=== PATIENT | female | born 1965 | race Caucasian/White ===

== ENCOUNTER → 2018-08-08 | Outpatient (CLI) | payer OTHER ==
--- NOTE | 2018-08-12 21:58 | RAD ---
MR#: [id number] Date of Study: 08/08/2018 Ordering Physician: SHAY LEROY, Referring Physician: SHAY LEROY, Tech: ERICKSON Petersen, RDMS, RTR APPROVED REPORT Patient Location : OUT-PATIENT Indications Lower Extremity Pain : Findings The right great saphenous vein measures 5.5 mm and does not show any evidence of reflux. The left gre at saphenous vein measures 7 mm and does not show any evidence of reflux. The bilateral lesser saphenous veins do not show any evidence of reflux. There are large varicosities seen in the left medial knee area but no obvious evidence of reflux is n oted in these varicosities. Critical Notification Critical Value: No <Conclusion> 1. Negative for reflux in the bilateral greater and lesser saphenous veins. Signed by : Hesham Stevenson, Electronically Approved : 08/12/2018 21:58:01
--- NOTE | 2018-08-12 22:11 | RAD ---
MR#: [id number] Date of Study: 08/08/2018 Ordering Physician: SHAY LEROY, Referring Physician: SHAY LEROY, Tech: ERICKSON Petersen, RDMS, RTR APPROVED REPORT Bilateral Lower Extremity Venous Study for DVT Patient Location: OUT-PATIENT Indications Lower Extremity Pain: Findings The bilateral lower extremity deep veins were evaluated for thrombus with color Doppler, spectral and grayscale images. On the right the grayscale images of the common femoral, superficial femoral and popliteal veins do n ot demonstrate any evidence of thrombus and these veins appear to be compressible. The below-knee vei ns were not well visualized but grossly appear to be compressible. Spectral imaging and color Doppler do not reveal any evidence of obstruction to flow with normal respirophasic variation above the knee . Below the knee there is spontaneous flow noted. On the left, the grayscale images of the common femoral, superficial femoral and popliteal veins do n ot demonstrate any evidence of thrombus and these veins appear to be compressible. The below-knee vei ns again were not well visualized but grossly appear to be compressible. Spectral imaging and color D oppler do not reveal any evidence of obstruction to flow with normal respirophasic variation above th e knee. The below-knee veins demonstrate spontaneous flow. Critical Notification Critical Value: No <Conclusion> 1. Negative for DVT in the bilateral lower extremities. Signed by : Hesham Stevenson, Electronically Approved : 08/12/2018 22:10:43
== END | disposition home or self-care (01) ==
LOC: US 08:36
PROVIDERS: ATTEND Internal Medicine Cardiovascular Disease
DX: I83.92 Asymptomatic varicose veins of left lower extremity (principal)
CPT/HCPCS: 93970

== ENCOUNTER → 2020-08-31 | Outpatient (CLI) | payer BC ==
--- NOTE | 2020-08-31 14:37 | CARD ---
MR#: [id number] Date of Study: 08/31/2020 Ordering Physician: SHAY US, Referring Physician: Dhruv MELENDEZ: Will Chamberlain [facility] APPROVED REPORT EXAM: Two-dimensional and M-mode echocardiogram with Doppler and color Doppler. Other Information Quality : AverageHR: 57bpm Rhythm : NSR INDICATION Palpitations 2D DIMENSIONS Left Atrium(2D)3.3 (1.6-4.0cm)IVSd0.8 (0.7-1.1cm) Aortic Root(2D)2.7 (2.0-3.7cm)LVDd4.8 (3.9-5.9cm) LVOT Diameter2.0 (1.8-2.4cm)PWd0.7 (0.7-1.1cm) LA Vaxnjb65 (18-58mL)LVDs3.5 (2.5-4.0cm) FS (%) 27.4 %SV56.0 ml LVEF(%)53.1 (>50%) Mitral Valve MV E Dwpugmwa54.4cm/sMV E Peak Gr.4mmHg MV DECEL [id number] A Vxggzjpf776.6cm/s MV E Mean Gr.2mmHgE/A Ratio0.8 TDI Lateral S' P. V9.0cm/sMedial S' P. V9.0cm/s Pulmonary Valve PV Peak Jggganpv54.1cm/s Tricuspid Valve TR P. Nltcewst969gu/sTR Peak Gr.17mmHg Pulmonary Vein S1 Xlbqcbfg05.4cm/sD2 Zdrllsta00.7cm/s LEFT VENTRICLE The left ventricle is normal size. There is normal left ventricular wall thickness. The left ventricu lar systolic function is normal. The ejection fraction is 60-65% There is normal LV segmental wall mo tion. Transmitral Doppler flow pattern is Grade I-abnormal relaxation pattern. No left ventricle thro mbus noted on this study. There is no ventricular septal defect visualized. There is no left ventricu lar aneurysm. RIGHT VENTRICLE The right ventricle is normal size. There is normal right ventricular wall thickness. The right ventr icular systolic function is normal. ATRIA The left atrium size is normal. The right atrium size is normal. Mildly aneurysmal atrial septum AORTIC VALVE The aortic valve is normal in structure and function. Doppler and Color Flow revealed no significant aortic regurgitation. There is no significant aortic valvular stenosis. There is no aortic valvular v egetation. MITRAL VALVE The mitral valve is normal in structure and function. There is no evidence of mitral valve prolapse. There is no mitral valve stenosis. Doppler and Color-flow revealed trace mitral regurgitation. TRICUSPID VALVE The tricuspid valve is normal in structure and function. Doppler and Color Flow revealed no tricuspid valve regurgitation noted. There is no tricuspid valve prolapse or vegetation. There is no tricuspid valve stenosis. PULMONIC VALVE Not well visualized Doppler and Color Flow revealed no pulmonic valvular regurgitation. There is no p ulmonic valvular stenosis. GREAT VESSELS The aortic root is normal in size. The ascending aorta is normal in size. The pulmonary artery is nor mal. PERICARDIAL EFFUSION There is no pleural effusion. There is no evidence of significant pericardial effusion. Critical Notification Critical Value: No <Conclusion> The left ventricular systolic function is normal. The ejection fraction is 60-65% There is normal LV segmental wall motion. Transmitral Doppler flow pattern is Grade I-abnormal relaxation pattern. Trace mitral regurgitation. There is no evidence of significant pericardial effusion. Signed by : Shay Us, Electronically Approved : 08/31/2020 14:36:37
== END ==
LOC: ECHO 08:43
PROVIDERS: ATTEND Internal Medicine Cardiovascular Disease
DX: R00.2 Palpitations (principal)
CPT/HCPCS: 93306

== ENCOUNTER 2020-09-01 10:34 | Emergency (ER) | payer BC ==
[~2020-09-01] VITALS: Ht 170.2 cm; Wt 79.5 kg
[2020-09-01] MEDS ORDERED: HYDROcodone/APAP 5/325MG 1 TAB TABLET PO ONE (11:15)
[2020-09-01] MEDS ORDERED: NEOMY/BACITR/POLYMYXIN OINT PACKET. TP ONE (11:15)
[2020-09-01 11:16] VITALS: BP 157/67
--- NOTE | 2020-09-01 11:18 | PHYS DOC ---
General Adult EDM: Chief Complaint: MECHANICAL FALL HPI: HPI: Patient is a 55 year old female who presents with was taking her puppy out side and went down a couple of cement stairs when she tripped falling into her landscaping that was ramos and gravel. Patient states this happened around 5:00 in the morning. She states she cannot relax and she had a tetanus shot. She has a left dorsal hand bruising, left jaw superficial scrapes, left toe bruising. A right forearm normal large superficial abrasion. Her right dorsal tib-fib is bruised. She also states that she just has pain in the right arm in general. She states she also hit the back of her head that did not pass out. She denies any neck or back pain. She denies LOC. She states she takes an arthritis pill that is prescribed to her that she thinks might have a blood thinner in it. She has arthritis and denies any other past medical history. Right now she rates her pain at a 6 out of 10. (YENNIFER EASON APRN) Review of Systems: Review of Systems: Constitutional: Denies fever or chills. [] Eyes: Denies change in visual acuity. [] HENT: Denies nasal congestion or sore throat. [] Respiratory: Denies cough or shortness of breath. [] Cardiovascular: Denies chest pain or edema. [] GI: Denies abdominal pain, nausea, vomiting, bloody stools or diarrhea. [] : Denies dysuria. [] Musculoskeletal: Denies back pain or +left hand joint pain. + Right arm ,+ left toe, + right lower leg +, left great toe [] Integument: Denies rash. + Great toe bruising , + right forearm large superficial abrasions, + left hand bruising, + left lower jaw superficial abrasion [] Neurologic: Denies headache, focal weakness or sensory changes. [] Endocrine: Denies polyuria or polydipsia. [] Lymphatic: Denies swollen glands. [] Psychiatric: Denies depression or anxiety. [] (YENNIFER EASON APRN) Heart Score: C/O Chest Pain: No Risk Factors: Risk Factors: DM, Current or recent (<one month) smoker, HTN, HLP, family history of CAD, obesity. Risk Scores: Score 0 - 3: 2.5% MACE over next 6 weeks - Discharge Home Score 4 - 6: 20.3% MACE over next 6 weeks - Admit for Clinical Observation Score 7 - 10: 72.7% MACE over next 6 weeks - Early Invasive Strategies (YENNIFER EASON APRN) Physical Exam: PE: Constitutional: Well developed, well nourished, no acute distress, non-toxic appearance. [] HENT: Normocephalic, atraumatic, bilateral external ears normal, oropharynx moist, no oral exudates, nose normal. [] Eyes: PERRLA, EOMI, conjunctiva normal, no discharge. [] Neck: Normal range of motion, no tenderness, supple, no stridor. [] Cardiovascular:Heart rate regular rhythm, no murmur [] Lungs & Thorax: Bilateral breath sounds clear to auscultation [] Abdomen: Bowel sounds normal, soft, no tenderness, no masses, no pulsatile masses. [] Skin: Warm, dry, no erythema, no rash. + Right forearm abrasion, left dorsal hand bruising, left toe bruising, left jaw superficial abrasion, right lower riley bruising. [] Back: No tenderness, no CVA tenderness. [] Extremities: Right arm forearm, left great toe, left dorsal hand tenderness, no cyanosis, no clubbing, left great toe ROM not intact, no edema. [] Neurologic: Alert and oriented X 3, normal motor function, normal sensory function, no focal deficits noted. [] Psychologic: Affect normal, judgement normal, mood normal. [] (YENNIFER EASON APRN) EKG: EKG: [] (YENNIFER EASON APRN) Radiology/Procedures: Radiology/Procedures: [] Impression: [facility] [address] [place] [address] IMAGING REPORT Signed PATIENT: AJ MATAMOROS ACCOUNT: [id number] : 1965 LOCATION: ER AGE: 55 SEX: F EXAM STATUS: REG ER ORD. PHYSICIAN: YENNIFER EASON APRN REASON: BRUISING AFTER FALL PROCEDURE: TIBIA FIBULA RIGHT EXAM: Left foot, 3 views; left tibia and fibula, 2 views. HISTORY: Fall COMPARISON: None. FINDINGS: Left foot: 3 views of the foot are obtained. There is a minimally displaced fracture involving the base of the first distal phalanx. There is a small plantar spur. There is minimal enthesopathy at the Achilles tendon insertion. Left tibia and fibula: 2 views of the tibia and fibula are obtained. There is no fracture, dislocation or subluxation. There is a suspected soft tissue contusion along the anterior distal riley. The ankle mortise is intact. IMPRESSION: 1. Minimally displaced fracture involving the base of the first distal phalanx. 2. Suspected soft tissue contusion along the anterior distal riley. Electronically signed by: Mica Sofia MD (09/01/2020 11:37 AM) [id number] DICTATED and SIGNED BY: MICA SOFIA MD DATE: 09/01/20 [id number] [id number] [place], [place] [id number] IMAGING REPORT Signed PATIENT: AJ MATAMOROS ACCOUNT: [id number] : 1965 LOCATION: ER AGE: 55 SEX: F EXAM STATUS: REG ER ORD. PHYSICIAN: YENNIFER EASON APRN REASON: BRUISING AFTER FALL PROCEDURE: HUMERUS RIGHT Examination: 2 views of the right humerus, 2 views of the right forearm, 3 views of the left hand HISTORY: History of bruising, fall COMPARISON: None available FINDINGS: The alignment of the humerus grossly appears unremarkable. The alignment of the radius, ulna grossly appears unremarkable. The alignment of the carpal joints, carpometacarpal joints, interphalangeal grossly appears unremarkable. IMPRESSION: No acute osseous findings. Electronically signed by: Omid Sarkar MD (09/01/2020 11:36 AM) [id number] DICTATED and SIGNED BY: OMID SARKAR MD DATE: 09/01/20 [id number] [facility] [address] [place] [address] IMAGING REPORT Signed PATIENT: BRADEN MATAMOROSA Rashmi ACCOUNT: [id number] : 1965 LOCATION: ER AGE: 55 SEX: F EXAM STATUS: REG ER ORD. PHYSICIAN: YENNIFER EASON APRN REASON: Fall PROCEDURE: CT HEAD AND CERVICAL SPINE WO EXAMINATION: CT HEAD AND C-SPINE WO CLINICAL HISTORY: Fall TECHNIQUE: Serial axial images without IV contrast were obtained from the vertex to the foramen magnum. CT of the cervical spine without IV contrast. Spiral, high resolution axial images were obtained from the skull base to the cervicothoracic junction with sagittal and coronal planar reconstructions. CT Dose Reduction Employed: One or more of the following individualized dose reduction techniques were utilized for this examination: 1. Automated exposure control 2. Adjustment of the mA and/or kV according to patient size 3. Use of iterative reconstruction technique. COMPARISON: None FINDINGS: BRAIN: Acute Change: No evidence of an acute contusion or other acute parenchymal process. Hemorrhage: No evidence of acute intracranial hemorrhage. Mass Lesion/Mass Effect: No evidence of intracranial mass or extraaxial fluid collection. No significant mass effect. Chronic Change: Atherosclerotic calcification of the bilateral carotid siphons. Parenchyma: No significant volume loss. Parenchyma otherwise within normal limits for age. Ventricles: Ventricles within normal limits for age. Paranasal Sinuses and Skull Base: Visualized paranasal sinuses clear. No evidence of acute calvarial fracture. C-SPINE: Alignment: Straightening to slight reversal of the normal cervical lordosis, possibly positional. Osseous Structures: No evidence of acute fracture or spondylolisthesis. Degenerative Changes: Multilevel degenerative disc disease, greatest in the mid to lower cervical spine. Multilevel mild facet arthropathy and neural foraminal narrowing. No evidence of high-grade osseous spinal stenosis. Cervical Soft Tissues: No prevertebral soft tissue swelling. IMPRESSION: BRAIN: No evidence of acute intracranial abnormality. C-SPINE: No evidence of acute osseous abnormality involving the cervical spine. Multilevel cervical degenerative disc disease and neural foraminal narrowing as described. Electronically signed by: Magno Otero DO (09/01/2020 11:53 AM) [id number] DICTATED and SIGNED BY: MAGNO OTERO DO DATE: 09/01/20 [id number] [facility] [address] [place] [address] IMAGING REPORT Signed PATIENT: AJ MATAMOROS ACCOUNT: [id number] : 1965 LOCATION: ER AGE: 55 SEX: F EXAM STATUS: REG ER ORD. PHYSICIAN: YENNIFER EASON APRN REASON: BRUISING AFTER FALL PROCEDURE: HAND LEFT 3V Examination: 2 views of the right humerus, 2 views of the right forearm, 3 views of the left hand HISTORY: History of bruising, fall COMPARISON: None available FINDINGS: The alignment of the humerus grossly appears unremarkable. The alignment of the radius, ulna grossly appears unremarkable. The alignment of the carpal joints, carpometacarpal joints, interphalangeal grossly appears unremarkable. IMPRESSION: No acute osseous findings. Electronically signed by: Omid Sarkar MD (09/01/2020 11:36 AM) [id number] DICTATED and SIGNED BY: OMID SARKAR MD DATE: 09/01/20 [id number] [facility] [address] [place] [address] IMAGING REPORT Signed PATIENT: AJ MATAMOROS ACCOUNT: [id number] : 1965 LOCATION: ER AGE: 55 SEX: F EXAM STATUS: REG ER ORD. PHYSICIAN: YENNIFER EASON APRN REASON: BRUISING AFTER FALL PROCEDURE: FOREARM RIGHT Examination: 2 views of the right humerus, 2 views of the right forearm, 3 views of the left hand HISTORY: History of bruising, fall COMPARISON: None available FINDINGS: The alignment of the humerus grossly appears unremarkable. The alignment of the radius, ulna grossly appears unremarkable. The alignment of the carpal joints, carpometacarpal joints, interphalangeal grossly appears unremarkable. IMPRESSION: No acute osseous findings. Electronically signed by: Omid Sarkar MD (09/01/2020 11:36 AM) [id number] DICTATED and SIGNED BY: OMID SARKAR MD DATE: 09/01/20 [id number] (YENNIFER EASON APRN) Course & Med Decision Making: Course & Med Decision Making Pertinent Labs and Imaging studies reviewed. (See chart for details) See HPI. Alert and oriented x4. Ambulatory with a steady gait. Speaks in full complete sentences. No joint deformity or bruising. Full range of motion of every joint in the right arm. Radial and pedal pulses strong present. Cap refill less than 2 seconds. Bleeding is controlled. Wounds are cleaned with chlorhexidine and saline. Antibiotic ointment is placed. Cannot bend the left great toe due to bruising and pain. No joint laxities. No focal bony spinal tenderness. She has a small bump to the left back of her head where she hit it. [] (YENNIFER EASON APRN) Dragon Disclaimer: Dragon Disclaimer: This electronic medical record was generated, in whole or in part, using a voice recognition dictation system. (YENNIFER EASON APRN) Departure Departure Impression: Primary Impression: Phalanx fracture, foot Qualified Codes: S92.422A - Displaced fracture of distal phalanx of left great toe, initial encounter for closed fracture Additional Impressions: Fall Qualified Codes: W19.XXXA - Unspecified fall, initial encounter Contusion Qualified Codes: S60.222A - Contusion of left hand, initial encounter Abrasion Disposition: HOME / SELF CARE / HOMELESS Condition: STABLE Referrals: KALANI HANEY MD (PCP) HALEIGH PAGE MD Patient Instructions: Toe Fracture with [facility] Additional Instructions: Follow-up with your primary care provider or orthopedic if needed. Use ibuprofen for pain. Watch for signs of infection of your abrasion. Use antibiotic ointment on your wounds. Keep them clean. If you begin having v omiting, severe headache or dizziness return emergency room. Attending Signature Attending Signature I have reviewed the PA/[employer] TECHNICIAN's note and plan of care. I was available for consultation as needed during the patient's visit in the emergency department. I agree with the clinical impression, plan, and disposition. (RYNE MCDONALD DO) YENNIFER EASON APRN Sep 01, 2020 11:18 RYNE MCDONALD DO Sep 02, 2020 14:35
--- NOTE | 2020-09-01 11:39 | RAD ---
EXAM: Left foot, 3 views; left tibia and fibula, 2 views. HISTORY: Fall COMPARISON: None. FINDINGS: Left foot: 3 views of the foot are obtained. There is a minimally displaced fracture involving the ba se of the first distal phalanx. There is a small plantar spur. There is minimal enthesopathy at the A chilles tendon insertion. Left tibia and fibula: 2 views of the tibia and fibula are obtained. There is no fracture, dislocatio n or subluxation. There is a suspected soft tissue contusion along the anterior distal riley. The ankl e mortise is intact. IMPRESSION: 1. Minimally displaced fracture involving the base of the first distal phalanx. 2. Suspected soft tissue contusion along the anterior distal riley. Electronically signed by: Mica Marrero MD (09/01/2020 11:37 AM) [id number]
--- NOTE | 2020-09-01 11:39 | RAD ---
Examination: 2 views of the right humerus, 2 views of the right forearm, 3 views of the left hand HISTORY: History of bruising, fall COMPARISON: None available FINDINGS: The alignment of the humerus grossly appears unremarkable. The alignment of the radius, ulna grossly appears unremarkable. The alignment of the carpal joints, carpometacarpal joints, interphalangeal benito ssly appears unremarkable. IMPRESSION: No acute osseous findings. Electronically signed by: Omid Bunn MD (09/01/2020 11:36 AM) [id number]
--- NOTE | 2020-09-01 11:55 | RAD ---
EXAMINATION: CT HEAD AND C-SPINE WO CLINICAL HISTORY: Fall TECHNIQUE: Serial axial images without IV contrast were obtained from the vertex to the foramen magnum. CT of the cervical spine without IV contrast. Spiral, high resolution axial images were obtained from the skull base to the cervicothoracic junction with sagittal and coronal planar reconstructions. CT Dose Reduction Employed: One or more of the following individualized dose reduction techniques wer e utilized for this examination: 1. Automated exposure control 2. Adjustment of the mA and/or kV ac cording to patient size 3. Use of iterative reconstruction technique. COMPARISON: None FINDINGS: BRAIN: Acute Change: No evidence of an acute contusion or other acute parenchymal process. Hemorrhage: No evidence of acute intracranial hemorrhage. Mass Lesion/Mass Effect: No evidence of intracranial mass or extraaxial fluid collection. No signific ant mass effect. Chronic Change: Atherosclerotic calcification of the bilateral carotid siphons. Parenchyma: No significant volume loss. Parenchyma otherwise within normal limits for age. Ventricles: Ventricles within normal limits for age. Paranasal Sinuses and Skull Base: Visualized paranasal sinuses clear. No evidence of acute calvarial fracture. C-SPINE: Alignment: Straightening to slight reversal of the normal cervical lordosis, possibly positional. Osseous Structures: No evidence of acute fracture or spondylolisthesis. Degenerative Changes: Multilevel degenerative disc disease, greatest in the mid to lower cervical spi ne. Multilevel mild facet arthropathy and neural foraminal narrowing. No evidence of high-grade osseo us spinal stenosis. Cervical Soft Tissues: No prevertebral soft tissue swelling. IMPRESSION: BRAIN: No evidence of acute intracranial abnormality. C-SPINE: No evidence of acute osseous abnormality involving the cervical spine. Multilevel cervical degenerative disc disease and neural foraminal narrowing as described. Electronically signed by: Magno Ryan DO (09/01/2020 11:53 AM) [facility]
[2020-09-01] MEDS ORDERED: DIPH,PERTUSS(ACELL),TET VAC/PF 0.5 ML SYRINGE. VAX IM ONE (12:00)
== END 2020-09-01 12:13 | disposition home or self-care (01) ==
LOC: ER 10:34
DX: S92.422A Displaced fracture of distal phalanx of left great toe, initial encounter for closed fracture (principal); S60.222A Contusion of left hand, initial encounter; S80.11XA Contusion of right lower leg, initial encounter; S50.811A Abrasion of right forearm, initial encounter; S00.81XA Abrasion of other part of head, initial encounter; W01.0XXA Fall on same level from slipping, tripping and stumbling without subsequent striking against object, initial encounter; Y93.89 Activity, other specified; Y92.89 Other specified places as the place of occurrence of the external cause; Y99.8 Other external cause status
CPT/HCPCS: 70450; 72125; 73060; 73090; 73130; 73590; 73630; 90471; 90715; 99285-25

== ENCOUNTER → 2021-08-16 | Outpatient (CLI) | payer BC ==
--- NOTE | 2021-08-17 09:01 | KCIC ---
XR HAND_RIGHT 3 VIEWS History: Reason: UNKNOWN INJURY/BRUISING TO RIGHT HAND 3 WEEKS AGO THUMB SIDE / Spl. Instructions: / History: Technique: 3 views right hand Comparison: None. Findings: No dislocation. No acute fracture. Impression: 1. No acute osseous abnormality. Electronically signed by: Isidoro Ellis DO (08/17/2021 8:59 AM) [id number]
== END ==
LOC: KCIC 13:52
PROVIDERS: ATTEND Family Medicine
DX: M79.641 Pain in right hand (principal)
CPT/HCPCS: 73130